=== PATIENT | female | born 1960 | race Caucasian/White ===

== ENCOUNTER 2017-07-06 10:49 | Emergency (ER) | payer BC ==
[2017-07-06 10:57] VITALS: TEMP 98.1
[2017-07-06] MEDS ORDERED: SODIUM CHLORIDE 0.9% 1,000 ML IV STA (11:32)
[2017-07-06] MEDS ORDERED: hydrALAZINE HCL 20 MG/ML 1 ML VIAL IVP STA (11:32)
[2017-07-06] MEDS ORDERED: ONDANSETRON 4 MG/2 ML VIAL IVP STA (11:32)
[2017-07-06] MEDS ORDERED: LORazepam 2 MG/ML INJ IV STA (11:32)
--- NOTE | 2017-07-06 12:18 | ED ---
General Adult HPI - General Chief complaint: Recheck/Abnormal Lab/Rx Stated complaint: Anxiety Time Seen by Provider: 07/06/17 10:51 Source: patient, EMS, RN notes reviewed, old records reviewed Mode of arrival: EMS Limitations: no limitations - History of Present Illness Initial comments: This is a 52-year-old female to the ER for evaluation regarding a few different complaints including chest pain and anxiety abdominal pain. Patient also complains of nausea without vomiting. Increased anxiety and stress. Patient has multiple history of surgery including abdominal surgery. Patient was recently diagnosed with elevated blood pressure although is not certain blood pressure medications. Patient called EMS today secondary to nausea and some abdominal discomfort which led her to have anxiety regarding was causing her pain. Patient very anxious upon arrival to ER. No fevers or travel history or sick contacts. - Related Data Home Medications Medication Instructions Recorded Confirmed Lansoprazole [Prevacid] 30 mg PO BID 07/24/16 07/06/17 ALPRAZolam [Xanax] 0.25 mg PO BID PRN 07/06/17 07/06/17 amLODIPine [Norvasc] 5 mg PO DAILY 07/06/17 07/06/17 Allergies Allergy/AdvReac Type Severity Reaction Status Date / Time amoxicillin Allergy Unknown Verified 07/06/17 11:06 aspirin Allergy Unknown Verified 07/06/17 11:06 Iodine and Iodide Containing Allergy Unknown Verified 07/06/17 11:06 Produc latex Allergy Unknown Verified 07/06/17 11:06 Penicillins Allergy Unknown Verified 07/06/17 11:06 prednisone Allergy Unknown Verified 07/06/17 11:06 strawberry Allergy Unknown Verified 07/06/17 11:06 Beta-Blockers AdvReac CHEST Verified 07/06/17 11:06 (Beta-Adrenergic Bloc PRESSURE lisinopril AdvReac DIZZINESS Verified 07/06/17 11:06 omeprazole [From Prilosec] AdvReac Itching Verified 07/06/17 11:06 Review of Systems ROS Statement: Those systems with pertinent positive or pertinent negative responses have been documented in the HPI. ROS Other: All systems not noted in ROS Statement are negative. Past Medical History Past Medical History: GERD/Reflux, Hypertension History of Any Multi-Drug Resistant Organisms: None Reported Past Surgical History: Cholecystectomy, Tubal Ligation Past Psychological History: Anxiety Smoking Status: Former smoker Past Alcohol Use History: None Reported Past Drug Use History: None Reported General Exam Limitations: no limitations General appearance: alert, in no apparent distress, anxious Head exam: Present: atraumatic, normocephalic, normal inspection Eye exam: Present: normal appearance, PERRL, EOMI. Absent: scleral icterus, conjunctival injection, periorbital swelling ENT exam: Present: normal exam, mucous membranes moist Neck exam: Present: normal inspection. Absent: tenderness, meningismus, lymphadenopathy Respiratory exam: Present: normal lung sounds bilaterally. Absent: respiratory distress, wheezes, rales, rhonchi, stridor Cardiovascular Exam: Present: regular rate, normal rhythm, normal heart sounds. Absent: systolic murmur, diastolic murmur, rubs, gallop, clicks GI/Abdominal exam: Present: soft, normal bowel sounds. Absent: distended, tenderness, guarding, rebound, rigid Extremities exam: Present: normal inspection, full ROM, normal capillary refill. Absent: tenderness, pedal edema, joint swelling, calf tenderness Back exam: Present: normal inspection Neurological exam: Present: alert, oriented X3, CN II-XII intact Psychiatric exam: Present: normal affect, normal mood Skin exam: Present: warm, dry, intact, normal color. Absent: rash Course Vital Signs 07/06/17 07/06/17 07/06/17 10:51 12:05 12:45 Temperature 98.1 F Pulse Rate 93 96 114 H Respiratory 18 18 16 Rate Blood Pressure 207/115 187/106 174/93 O2 Sat by Pulse 98 97 99 Oximetry - Reevaluation(s) Reevaluation #1: 07/06/17 13:08 Patient's blood pressure and symptoms are much improved at this time, patient is encouraged to take blood pressure medication as prescribed Medical Decision Making - Medical Decision Making 57 female ER for evaluation slowdown discomfort with nausea. No active vomiting no chest pain. Patient did have initially elevated blood pressure, that is now improved. Patient's laboratory is otherwise normal and patient can be discharged home - Lab Data Result diagrams: 07/06/17 11:52 07/06/17 11:52 Lab Results 07/06/17 07/06/17 07/06/17 Range/Units 11:52 11:52 11:52 WBC 9.0 (3.8-10.6) k/uL RBC 5.95 H (3.80-5.40) m/uL Hgb 16.8 H (11.4-16.0) gm/dL Hct 51.1 H (34.0-46.0) % MCV 85.8 (80.0-100.0) fL MCH 28.2 (25.0-35.0) pg MCHC 32.9 (31.0-37.0) g/dL RDW 12.9 (11.5-15.5) % Plt Count 305 (150-450) k/uL Neutrophils % 72 % Lymphocytes % 18 % Monocytes % 6 % Eosinophils % 2 % Basophils % 1 % Neutrophils # 6.5 (1.3-7.7) k/uL Lymphocytes # 1.6 (1.0-4.8) k/uL Monocytes # 0.5 (0-1.0) k/uL Eosinophils # 0.2 (0-0.7) k/uL Basophils # 0.1 (0-0.2) k/uL Sodium 143 (137-145) mmol/L Potassium 4.7 (3.5-5.1) mmol/L Chloride 107 (98-107) mmol/L Carbon Dioxide 22 (22-30) mmol/L Anion Gap 14 mmol/L BUN 11 (7-17) mg/dL Creatinine 0.72 (0.52-1.04) mg/dL Est GFR (MDRD) Af Amer >60 (>60 ml/min/1.73 sqM) Est GFR (MDRD) Non-Af >60 (>60 ml/min/1.73 sqM) Glucose 103 H (74-99) mg/dL Calcium 10.3 H (8.4-10.2) mg/dL Phosphorus 2.8 (2.5-4.5) mg/dL Magnesium 2.0 (1.6-2.3) mg/dL Total Bilirubin 0.5 (0.2-1.3) mg/dL AST 43 H (14-36) U/L ALT 75 H (9-52) U/L Alkaline Phosphatase 97 (38-126) U/L Total Creatine Kinase 43 (30-135) U/L CK-MB (CK-2) 0.3 (0.0-2.4) ng/mL CK-MB (CK-2) Rel Index 0.7 Troponin I <0.012 (0.000-0.034) ng/mL Total Protein 8.4 H (6.3-8.2) g/dL Albumin 4.9 (3.5-5.0) g/dL Lipase 88 (23-300) U/L Disposition Clinical Impression: Anxiety, Hypertension Disposition: HOME SELF-CARE Condition: Good Instructions: Hypertension (ED) Referrals: Lon Alexandra MD [Primary Care Provider] - 1-2 days
[2017-07-06 12:24] LABS: Basophils # (A) 0.1 k/uL (0-0.2); Basophils % (A) 1 %; CH 28.5; CHCM 33.3; Eosinophils # (A) 0.2 k/uL (0-0.7); Eosinophils % (A) 2 %; HCT 51.1 % (34.0-46.0); HDW 2.39; HGB 16.8 gm/dL (11.4-16.0); Luc % (Auto) 1; Lymphocytes # (A) 1.6 k/uL (1.0-4.8); Lymphocytes % (A) 18 %; MCH 28.2 pg (25.0-35.0); MCHC 32.9 g/dL (31.0-37.0); MCV 85.8 fL (80.0-100.0); Mean Platelet Volume 8.6; Monocytes # (A) 0.5 k/uL (0-1.0); Monocytes % (A) 6 %; Neutrophils # (A) 6.5 k/uL (1.3-7.7); Neutrophils % (A) 72 %; RBC 5.95 m/uL (3.80-5.40); RDW 12.9 % (11.5-15.5); WBC (Perox) 8.11
[2017-07-06 12:28] LABS: ALT 75 U/L (9-52); AST 43 U/L (14-36); Alkaline Phosphatase 97 U/L (38-126); Anion Gap 14 mmol/L; Blood Urea Nitrogen 11 mg/dL (7-17); Calcium 10.3 mg/dL (8.4-10.2); Carbon Dioxide 22 mmol/L (22-30); Chloride 107 mmol/L (98-107); Glucose 103 mg/dL (74-99); Non-African American GFR(MDRD) >60 (>60 ml/min/1.73 sqM); Phosphorus 2.8 mg/dL (2.5-4.5); Potassium 4.7 mmol/L (3.5-5.1); Sodium 143 mmol/L (137-145); Total Bilirubin 0.5 mg/dL (0.2-1.3); Total Protein 8.4 g/dL (6.3-8.2)
[2017-07-06 12:34] LABS: Creatine Kinase 43 U/L (30-135)
[2017-07-06 12:47] LABS: Creatine Kinase MB 0.3 ng/mL (0.0-2.4); Troponin I <0.012 ng/mL (0.000-0.034)
[2017-07-06 13:42] VITALS: BP 160/99; PULSE 110; RESP 18
== END 2017-07-06 13:43 | disposition home or self-care (01) ==
LOC: EC 10:49
DX: I10 Essential (primary) hypertension (principal); F41.9 Anxiety disorder, unspecified; R07.9 Chest pain, unspecified; Z87.891 Personal history of nicotine dependence; Z79.899 Other long term (current) drug therapy; Z88.0 Allergy status to penicillin; Z88.6 Allergy status to analgesic agent; Z88.8 Allergy status to other drugs, medicaments and biological substances; Z91.018 Allergy to other foods; Z91.040 Latex allergy status; Z91.041 Radiographic dye allergy status; Z90.49 Acquired absence of other specified parts of digestive tract
CPT/HCPCS: 99284; 96374; 96375 ×2; 96361; 36415; 93005; 80053; 82550; 82553; 83690; 83735; 84100; 84484; 85025; J2060; J0360; J2405

== ENCOUNTER 2017-08-12 14:03 | Emergency (ER) | payer BC ==
[2017-08-12] MEDS ORDERED: SODIUM CHLORIDE 0.9% 500 ML IV STA (15:12)
[2017-08-12] MEDS ORDERED: ONDANSETRON 4 MG/2 ML VIAL IVP STA (15:12)
[2017-08-12] MEDS ORDERED: FAMOTIDINE 20 MG/2 ML VIAL IV STA (15:13)
[2017-08-12] MEDS ORDERED: DICYCLOMINE 20 MG TAB PO STA (15:13)
--- NOTE | 2017-08-12 15:38 | ED ---
Abdominal Pain HPI - General Chief Complaint: Abdominal Pain Stated Complaint: ABDOMINAL PAIN AND VOMITING X 6 WEEKS Time Seen by Provider: 08/12/17 15:06 Source: patient, RN notes reviewed Mode of arrival: wheelchair Limitations: no limitations - History of Present Illness Initial Comments: This a 57-year-old female presents emergency Department chief complaint of abdominal pain times. Patient states she's been having worsening abdominal pain. Patient states she's been seen here and at [facility] for this. She' s also seen her primary care physician. Patient states she is scheduled see a GI physician in August. Patient states that she does have some loose stools but normally has constipation as she's been diagnosed with IBS or constipation. She states when she was here she was told Anxiety. Patient denies any dysuria , hematuria, vomiting. Patient does admit to some nausea does take Prevacid for acid reflux. There is family history of gastritis and gastric ulcers no history of IBS or IBD. Patient denies having history of having EGD or colonoscopy. Patient denies chest pain, shortness of breath. - Related Data Home Medications Medication Instructions Recorded Confirmed Lansoprazole [Prevacid] 30 mg PO DAILY 07/24/16 08/12/17 ALPRAZolam [Xanax] 0.25 mg PO BID PRN 07/06/17 08/12/17 Mylanta 30 ml PO DAILY PRN 08/12/17 08/12/17 Ranitidine HCl [Zantac] 150 mg PO DAILY PRN 08/12/17 08/12/17 Previous Rx's Medication Instructions Recorded Dicyclomine [Bentyl] 20 mg PO TID #30 tablet 08/12/17 Allergies Allergy/AdvReac Type Severity Reaction Status Date / Time amoxicillin Allergy Unknown Verified 08/12/17 15:00 aspirin Allergy Unknown Verified 08/12/17 15:00 Iodine and Iodide Containing Allergy Unknown Verified 08/12/17 15:00 Produc latex Allergy Unknown Verified 08/12/17 15:00 Penicillins Allergy Unknown Verified 08/12/17 15:00 prednisone Allergy Unknown Verified 08/12/17 15:00 strawberry Allergy Unknown Verified 08/12/17 15:00 amlodipine [From Norvasc] AdvReac CAUSED Verified 08/12/17 15:00 BLOOD PRESSURE TO GO UP Beta-Blockers AdvReac CHEST Verified 08/12/17 15:00 (Beta-Adrenergic Bloc PRESSURE lisinopril AdvReac DIZZINESS Verified 08/12/17 15:00 omeprazole [From Prilosec] AdvReac Itching Verified 08/12/17 15:00 Review of Systems ROS Statement: Those systems with pertinent positive or pertinent negative responses have been documented in the HPI. ROS Other: All systems not noted in ROS Statement are negative. Past Medical History Past Medical History: GERD/Reflux, Hypertension History of Any Multi-Drug Resistant Organisms: None Reported Past Surgical History: Cholecystectomy, Tubal Ligation Past Psychological History: Anxiety Smoking Status: Former smoker Past Alcohol Use History: None Reported Past Drug Use History: None Reported General Exam Limitations: no limitations General appearance: alert, in no apparent distress Head exam: Present: atraumatic, normocephalic, normal inspection Neck exam: Present: normal inspection, full ROM. Absent: tenderness, meningismus, lymphadenopathy Respiratory exam: Present: normal lung sounds bilaterally. Absent: respiratory distress, wheezes, rales, rhonchi, stridor Cardiovascular Exam: Present: regular rate, normal rhythm, normal heart sounds. Absent: systolic murmur, diastolic murmur, rubs, gallop, clicks GI/Abdominal exam: Present: soft, tenderness (Mild diffuse no localized tenderness), normal bowel sounds. Absent: distended, guarding, rebound, rigid Back exam: Absent: CVA tenderness (R), CVA tenderness (L) Neurological exam: Present: alert, oriented X3, CN II-XII intact Skin exam: Present: warm, dry, intact, normal color. Absent: rash Course Vital Signs 08/12/17 08/12/17 14:25 16:20 Temperature 98.4 F Pulse Rate 107 H 92 Respiratory 18 20 Rate Blood Pressure 174/107 197/111 O2 Sat by Pulse 99 98 Oximetry Medical Decision Making - Medical Decision Making 57-year-old female presented for chronic abdominal issues. Patient had decreased appetite, some acid reflux type symptoms. Patient states CT does show sliding hiatal hernia. Patient does have follow-up appointment in 1 week with GI. Patient be discharged with Bentyl and gastric ulcer dietary changes. - Lab Data Result diagrams: 08/12/17 15:33 08/12/17 15:33 Lab Results 08/12/17 08/12/17 08/12/17 Range/Units 15:33 15:33 15:33 WBC 7.8 (3.8-10.6) k/uL RBC 5.93 H (3.80-5.40) m/uL Hgb 16.6 H (11.4-16.0) gm/dL Hct 51.1 H (34.0-46.0) % MCV 86.3 (80.0-100.0) fL MCH 28.1 (25.0-35.0) pg MCHC 32.5 (31.0-37.0) g/dL RDW 15.3 (11.5-15.5) % Plt Count 259 (150-450) k/uL Neutrophils % 66 % Lymphocytes % 21 % Monocytes % 7 % Eosinophils % 3 % Basophils % 1 % Neutrophils # 5.2 (1.3-7.7) k/uL Lymphocytes # 1.6 (1.0-4.8) k/uL Monocytes # 0.5 (0-1.0) k/uL Eosinophils # 0.3 (0-0.7) k/uL Basophils # 0.1 (0-0.2) k/uL PT 11.9 (9.0-12.0) sec INR 1.2 H (<1.2) APTT 26.0 (22.0-30.0) sec Sodium 141 (137-145) mmol/L Potassium 4.0 (3.5-5.1) mmol/L Chloride 106 (98-107) mmol/L Carbon Dioxide 22 (22-30) mmol/L Anion Gap 13 mmol/L BUN 7 (7-17) mg/dL Creatinine 0.77 (0.52-1.04) mg/dL Est GFR (MDRD) Af Amer >60 (>60 ml/min/1.73 sqM) Est GFR (MDRD) Non-Af >60 (>60 ml/min/1.73 sqM) Glucose 95 (74-99) mg/dL Calcium 10.3 H (8.4-10.2) mg/dL Total Bilirubin 0.7 (0.2-1.3) mg/dL AST 55 H (14-36) U/L ALT 93 H (9-52) U/L Alkaline Phosphatase 101 (38-126) U/L Total Protein 8.0 (6.3-8.2) g/dL Albumin 4.6 (3.5-5.0) g/dL Amylase 56 (30-110) U/L Lipase 75 (23-300) U/L Disposition Clinical Impression: Abdominal pain, Hiatal hernia Disposition: HOME SELF-CARE Condition: Stable Instructions: Hiatal Hernia (ED), Diet for Stomach Ulcers and Gastritis (ED) Additional Instructions: Please return to the Emergency Department if symptoms worsen or any other concerns. Prescriptions: Dicyclomine [Bentyl] 20 mg PO TID #30 tablet Referrals: Lon Alexandra MD [Primary Care Provider] - 1-2 days Juana Bazzi MD [STAFF PHYSICIAN] - 1-2 days Time of Disposition: 16:43
[2017-08-12 15:45] LABS: Basophils # (A) 0.1 k/uL (0-0.2); Basophils % (A) 1 %; CH 28.8; CHCM 33.5; Eosinophils # (A) 0.3 k/uL (0-0.7); Eosinophils % (A) 3 %; HCT 51.1 % (34.0-46.0); HDW 2.35; HGB 16.6 gm/dL (11.4-16.0); Luc # (Auto) 0.14; Luc % (Auto) 2; Lymphocytes # (A) 1.6 k/uL (1.0-4.8); Lymphocytes % (A) 21 %; MCH 28.1 pg (25.0-35.0); MCHC 32.5 g/dL (31.0-37.0); MCV 86.3 fL (80.0-100.0); Mean Platelet Volume 9.6; Monocytes # (A) 0.5 k/uL (0-1.0); Monocytes % (A) 7 %; Neutrophils # (A) 5.2 k/uL (1.3-7.7); Neutrophils % (A) 66 %; RBC 5.93 m/uL (3.80-5.40); RDW 15.3 % (11.5-15.5); WBC 7.8 k/uL (3.8-10.6); WBC (Perox) 8.13
[2017-08-12 15:56] LABS: ALT 93 U/L (9-52); AST 55 U/L (14-36); Alkaline Phosphatase 101 U/L (38-126); Amylase 56 U/L (30-110); Anion Gap 13 mmol/L; Blood Urea Nitrogen 7 mg/dL (7-17); Calcium 10.3 mg/dL (8.4-10.2); Carbon Dioxide 22 mmol/L (22-30); Chloride 106 mmol/L (98-107); Glucose 95 mg/dL (74-99); Non-African American GFR(MDRD) >60 (>60 ml/min/1.73 sqM); Sodium 141 mmol/L (137-145); Total Bilirubin 0.7 mg/dL (0.2-1.3)
--- NOTE | 2017-08-12 16:13 | CT ---
EXAMINATION TYPE: CT abdomen pelvis wo con DATE OF EXAM: 08/12/2017 COMPARISON: NONE HISTORY: Pain Examination of the solid and hollow viscera is limited given the lack of contrast. FINDINGS: LUNG BASES: No evidence for nodule. No evidence for infiltrate. Small sliding-type hiatal hernia. LIVER/GB: Diffuse hepatic steatosis. Cholecystectomy clips noted. No space-occupying hepatic lesion. PANCREAS: No pancreatic mass identified. No inflammatory process seen. SPLEEN: No evidence for splenomegaly. No intrasplenic lesions seen. ADRENALS: No adrenal nodules identified. No evidence for thickening. KIDNEYS: No evidence for renal mass. 6 mm calculus nonobstructing midpole right kidney. No hydronephr osis. BOWEL: Appendix has a normal appearance. No evidence of bowel obstruction. No inflammatory process. Lymph nodes: No evidence for adenopathy greater than 1 cm. Abdominal aorta: Atheromatous changes seen. No evidence for aneurysm. Genital organs: 3.3 cm leiomyoma the uterus. No ovarian masses identified. Focal myometrial calcifica tions. Other: No significant abnormality. IMPRESSION: 1. NONOBSTRUCTING RIGHT-SIDED NEPHROLITHIASIS. 2. HEPATIC STEATOSIS. 3. SMALL SLIDING-TYPE HIATAL HERNIA.
[2017-08-12] MEDS ORDERED: ALPRAZolam 0.5 MG TAB PO STA (16:19)
[2017-08-12 16:36] LABS: INR 1.2 (<1.2); Prothrombin Time 11.9 sec (9.0-12.0)
[2017-08-12 16:42] LABS: Appearance,Urine Clear (Clear); Bilirubin,Urine Negative (Negative); Glucose,Urine (UA) Negative (Negative); Ketones,Urine 1+ (Negative); Leukocyte Esterase,Urine Negative (Negative); Nitrite,Urine Negative (Negative); Protein,Urine Negative (Negative); Specific Gravity,Urine 1.004 (1.001-1.035); UA Billing (MACRO vs. MICRO) CHEM; Urobilinogen,Urine <2.0 mg/dL (<2.0)
[2017-08-12 16:53] VITALS: BP 199/122; PULSE 96; RESP 16; TEMP 97
== END 2017-08-12 17:03 | disposition home or self-care (01) ==
LOC: EC 14:03
DX: K44.9 Diaphragmatic hernia without obstruction or gangrene (principal); K21.9 Gastro-esophageal reflux disease without esophagitis; Z87.891 Personal history of nicotine dependence; Z79.899 Other long term (current) drug therapy; Z88.0 Allergy status to penicillin; Z88.6 Allergy status to analgesic agent; Z91.041 Radiographic dye allergy status; Z91.040 Latex allergy status; Z91.018 Allergy to other foods; Z88.8 Allergy status to other drugs, medicaments and biological substances; Z90.49 Acquired absence of other specified parts of digestive tract; Z98.51 Tubal ligation status
CPT/HCPCS: 36415; 74176; 80053; 81003; 82150; 83690; 85025; 85610; 85730; 96361; 96374; 96375; 99284

== ENCOUNTER 2017-10-30 14:24 | Emergency (ER) | payer BC ==
[2017-10-30 14:29] VITALS: BP 201/111; RESP 18; TEMP 98.2
--- NOTE | 2017-10-30 15:54 | ED ---
Chest Pain HPI - General Chief Complaint: Chest Pain Stated Complaint: Chest pain Time Seen by Provider: 10/30/17 15:40 Source: patient, RN notes reviewed Mode of arrival: wheelchair Limitations: no limitations - History of Present Illness Initial Comments: This is a 57-year-old female with no personal history of heart disease but a strong family history her dad in his mid 30s heart disease who states she had the onset of pain between her shoulder blades especially on the left going into her neck. She's had pain there for 2 weeks seems to get worse when she is at work sitting in a certain chair. She states is dull yesterday was fairly severe at 8/10 today. 2-11/21. He's had no fevers chills nausea vomiting sweats she does however state that she had flu symptoms about a week ago and it had to stay home from work because of it. This seems to be improving. She has a other symptoms to report at this time. MD Complaint: chest pain - Related Data Home Medications Medication Instructions Recorded Confirmed Lansoprazole [Prevacid] 30 mg PO DAILY 07/24/16 10/30/17 ALPRAZolam [Xanax] 0.25 mg PO BID PRN 07/06/17 10/30/17 Ranitidine HCl [Zantac] 150 mg PO DAILY PRN 08/12/17 10/30/17 Cholecalciferol [Vitamin D3] 1,000 unit PO DAILY 10/30/17 10/30/17 Multivitamins, Thera [Multivitamin 1 tab PO DAILY 10/30/17 10/30/17 (formulary)] Simethicone [Gas-X] 125 mg PO DAILY PRN 10/30/17 10/30/17 Vitamin B Complex 1 cap PO DAILY 10/30/17 10/30/17 Allergies Allergy/AdvReac Type Severity Reaction Status Date / Time amoxicillin Allergy Unknown Verified 10/30/17 15:54 aspirin Allergy Unknown Verified 10/30/17 15:54 Iodine and Iodide Containing Allergy Unknown Verified 10/30/17 15:54 Produc latex Allergy Unknown Verified 10/30/17 15:54 Penicillins Allergy Unknown Verified 10/30/17 15:54 prednisone Allergy Unknown Verified 10/30/17 15:54 strawberry Allergy Unknown Verified 10/30/17 15:54 amlodipine [From [facility]] AdvReac CAUSED Verified 10/30/17 15:54 BLOOD PRESSURE TO GO UP Beta-Blockers AdvReac CHEST Verified 10/30/17 15:54 (Beta-Adrenergic Bloc PRESSURE lisinopril AdvReac DIZZINESS Verified 10/30/17 15:54 omeprazole [From Prilosec] AdvReac Itching Verified 10/30/17 15:54 Review of Systems ROS Statement: Those systems with pertinent positive or pertinent negative responses have been documented in the HPI. ROS Other: All systems not noted in ROS Statement are negative. EKG Findings - EKG Results: EKG: interpreted by JAIRON, sinus rhythm (Sinus rhythm rate 92. Interval 124 QRS duration 70 QT since QTC of 380/469 this is a low-voltage QRS otherwise unremarkable) Past Medical History Past Medical History: GERD/Reflux, Hypertension History of Any Multi-Drug Resistant Organisms: None Reported Past Surgical History: Cholecystectomy, Tubal Ligation Past Psychological History: Anxiety Smoking Status: Former smoker Past Alcohol Use History: None Reported Past Drug Use History: None Reported General Exam - General Exam Comments Initial Comments: This is a well-developed well-nourished awake alert oriented 3 female Limitations: no limitations General appearance: alert, in no apparent distress Head exam: Present: atraumatic, normocephalic, normal inspection Eye exam: Present: normal appearance, PERRL, EOMI. Absent: scleral icterus, conjunctival injection, periorbital swelling ENT exam: Present: normal exam, mucous membranes moist Neck exam: Present: normal inspection. Absent: tenderness, meningismus, lymphadenopathy Respiratory exam: Present: normal lung sounds bilaterally. Absent: respiratory distress, wheezes, rales, rhonchi, stridor Cardiovascular Exam: Present: regular rate, normal rhythm, normal heart sounds. Absent: systolic murmur, diastolic murmur, rubs, gallop, clicks GI/Abdominal exam: Present: soft, normal bowel sounds. Absent: distended, tenderness, guarding, rebound, rigid Extremities exam: Present: normal inspection, full ROM, normal capillary refill. Absent: tenderness, pedal edema, joint swelling, calf tenderness Back exam: Present: normal inspection, tenderness (Tenderness palpation over the left paraspinous muscles and rhomboid muscles this does reproduce the pain when I palpate. No spinous process tenderness no tenderness anywhere else.). Absent: CVA tenderness (R), CVA tenderness (L), rash noted Neurological exam: Present: alert, oriented X3, CN II-XII intact Psychiatric exam: Present: normal affect, normal mood Skin exam: Present: warm, dry, intact, normal color. Absent: rash Course Vital Signs 10/30/17 14:26 Temperature 98.2 F Pulse Rate 90 Respiratory 18 Rate Blood Pressure 201/111 O2 Sat by Pulse 98 Oximetry Chest Pain MDM - MDM I did review the imaging and reports no acute findings. The patient's workup is thus far negative for acute findings the presentation is consistent with musculoskeletal chest pain. Light of her family history however I did recommend she follow-up with her doctor for outpatient stress test. She cannot take anti-inflammatories she will continue with Tylenol for pain and warm compresses I did recommend massage also. Disposition Clinical Impression: Chest wall syndrome, Myofascial pain Disposition: HOME SELF-CARE Condition: Good Instructions: Chest Wall Pain (ED), Musculoskeletal Pain (ED) Referrals: Lon Alexandra MD [Primary Care Provider] - 1-2 days
[2017-10-30 16:27] LABS: Basophils # (A) 0.1 k/uL (0-0.2); Basophils % (A) 1 %; Eosinophils # (A) 0.1 k/uL (0-0.7); Eosinophils % (A) 1 %; HCT 48.1 % (34.0-46.0); Lymphocytes % (A) 28 %; MCH 28.3 pg (25.0-35.0); MCHC 33.3 g/dL (31.0-37.0); Mean Platelet Volume 8.5; Monocytes # (A) 0.3 k/uL (0-1.0); Monocytes % (A) 5 %; Neutrophils # (A) 4.6 k/uL (1.3-7.7); Neutrophils % (A) 64 %; Platelet Count 270 k/uL (150-450); RBC 5.66 m/uL (3.80-5.40); RDW 12.7 % (11.5-15.5); WBC 7.3 k/uL (3.8-10.6)
[2017-10-30 16:38] LABS: ALT 109 U/L (9-52); AST 75 U/L (14-36); Albumin 4.4 g/dL (3.5-5.0); Alkaline Phosphatase 103 U/L (38-126); Amylase 48 U/L (30-110); Anion Gap 16 mmol/L; Blood Urea Nitrogen 13 mg/dL (7-17); Calcium 10.2 mg/dL (8.4-10.2); Carbon Dioxide 20 mmol/L (22-30); Chloride 106 mmol/L (98-107); Glucose 91 mg/dL (74-99); Lipase 101 U/L (23-300); Magnesium 1.9 mg/dL (1.6-2.3); Sodium 142 mmol/L (137-145); Total Bilirubin 0.8 mg/dL (0.2-1.3); Total Protein 7.6 g/dL (6.3-8.2)
--- NOTE | 2017-10-30 16:39 | XR ---
EXAMINATION TYPE: XR chest 2V DATE OF EXAM: 10/30/2017 COMPARISON: 10/20/2011 HISTORY: Chest pain TECHNIQUE: Frontal and lateral views of the chest are obtained. FINDINGS: Heart and mediastinum are normal. Lungs are clear. Diaphragm is normal. Bony thorax is int act. IMPRESSION: Normal chest. No change.
[2017-10-30 16:46] LABS: Creatine Kinase 44 U/L (30-135)
[2017-10-30 16:48] LABS: D-Dimer 0.35 mg/L FEU (<0.60); INR 1.1 (<1.2); Partial Thromboplastin Time 24.3 sec (22.0-30.0); Prothrombin Time 10.5 sec (9.0-12.0)
[2017-10-30 16:59] LABS: Creatine Kinase MB <0.2 ng/mL (0.0-2.4); Troponin I <0.012 ng/mL (0.000-0.034)
[2017-10-30 17:17] VITALS: PULSE 80
== END 2017-10-30 17:22 | disposition home or self-care (01) ==
LOC: EC 14:24
DX: R07.1 Chest pain on breathing (principal); M79.1 Myalgia; K21.9 Gastro-esophageal reflux disease without esophagitis; Z87.891 Personal history of nicotine dependence; Z79.899 Other long term (current) drug therapy; Z88.0 Allergy status to penicillin; Z91.040 Latex allergy status; Z88.8 Allergy status to other drugs, medicaments and biological substances; Z88.6 Allergy status to analgesic agent; Z91.018 Allergy to other foods
CPT/HCPCS: 36415; 71046; 80053; 82150; 82550; 82553; 83690; 83735; 83880; 84484; 85025; 85379; 85610; 85730; 93005; 99285

== ENCOUNTER → 2017-11-02 | Outpatient (CLI) | payer BC ==
--- NOTE | 2017-11-03 07:46 | MM ---
Reason for exam: additional evaluation requested from prior study. Last mammogram was performed 1 year and 3 months ago. History: Patient is postmenopausal. Benign US biopsy breast VAD LT of the left breast, July 24, 2016. Physical Findings: Nurse did not find any significant physical abnormalities on exam. MG 3D Diag Mammo W/Cad ANNITA Bilateral CC and MLO view(s) were taken. LM, spot compression MLO, and spot compression CC view(s) were taken of the right breast. Prior study comparison: July 24, 2016, left breast MG diagnostic mammo LT wo CAD. July 04, 2016, left breast MG work up mamm w CAD LT. There are scattered fibroglandular densities. Previous mammotome biopsy in the left breast. Focal asymmetry right upper outer quadrant disperses on spot 3D CC and spot 3D MLO views. Asymmetric density 12 o'clock subareolar left breast is stable from 2016. These results were verbally communicated with the patient and result sheet given to the patient on 11/02/17. ASSESSMENT: Negative, BI-RAD 1 RECOMMENDATION: Routine screening mammogram of both breasts in 1 year.
== END | disposition home or self-care (01) ==
LOC: RADMAMWWP 14:43
PROVIDERS: ATTEND Obstetrics & Gynecology
DX: R92.8 Other abnormal and inconclusive findings on diagnostic imaging of breast (principal)
CPT/HCPCS: 77066; G0279

== ENCOUNTER → 2018-10-27 | Outpatient (CLI) | payer BC ==
--- NOTE | 2018-10-27 10:13 | FL ---
ESOPHOGRAM. HISTORY: Dysphagia Esophagram was performed per the air contrast technique. The patient swallowed barium and effervesce nt crystals without difficulty or delay. Esophageal peristalsis and motility appear to be within normal limits. There is no evidence for filling defect, mass or diverticulum. No hiatal hernia seen. Subsequently single contrast cervical esophagram was performed which fails demonstrate evidence for a spiration penetration or mass. IMPRESSION: Unremarkable study.
== END | disposition home or self-care (01) ==
LOC: RADFLWHC 09:19
PROVIDERS: ATTEND Family Medicine
DX: R13.10 Dysphagia, unspecified (principal)
CPT/HCPCS: 74220

== ENCOUNTER → 2019-05-02 | Outpatient (CLI) | payer BC ==
--- NOTE | 2019-05-03 13:31 | MM ---
Reason for exam: screening (asymptomatic). Last mammogram was performed 1 year and 6 months ago. History: Patient is postmenopausal. Benign US biopsy breast VAD LT of the left breast, July 24, 2016. Physical Findings: A clinical breast exam by your physician is recommended on an annual basis and results should be correlated with mammographic findings. MG Screening Mammo w CAD Bilateral CC and MLO view(s) were taken. Prior study comparison: November 02, 2017, bilateral MG 3d diag mammo w/cad ANNITA. July 24, 2016, left breast MG diagnostic mammo LT wo CAD. June 26, 2016, bilateral MG screening mammo w CAD. December 22, 2014, bilateral MG screening mammo w CAD. There are scattered fibroglandular densities. Previous mammotome biopsy in the left breast. Stable benign round calcifications bilaterally. No significant changes when compared with prior studies. ASSESSMENT: Benign, BI-RAD 2 RECOMMENDATION: Routine screening mammogram of both breasts in 1 year.
== END | disposition home or self-care (01) ==
LOC: RADMAMWWP 10:49
PROVIDERS: ATTEND Obstetrics & Gynecology
DX: Z12.31 Encounter for screening mammogram for malignant neoplasm of breast (principal)
CPT/HCPCS: 77067

== ENCOUNTER → 2020-03-27 | Outpatient (CLI) | payer BC | END | disposition home or self-care (01) | LOC: LABWHC1 10:06 | PROVIDERS: ATTEND Family Medicine | DX: Z20.828 Contact with and (suspected) exposure to other viral communicable diseases (principal) | CPT/HCPCS: 36415; 86769 ==

== ENCOUNTER 2020-10-09 16:18 | Observation (INO) | payer BC ==
[2020-10-09] MEDS ORDERED: LORazepam 2 MG/ML INJ IV STA (16:46)
--- NOTE | 2020-10-09 16:49 | ED ---
General Adult HPI - General Chief complaint: Arrhythmia/Palpitations Stated complaint: Heart Palpatations Time Seen by Provider: 10/09/20 16:27 Source: patient Mode of arrival: ambulatory Limitations: no limitations - History of Present Illness Initial comments: Dictation was produced using [employer] dictation software. please excuse any grammatical, word or spelling errors. This patient was cared for during a federal and state declared state of e mergency secondary to Covid 19 Chief Complaint: 60-year-old male past medical history of anxiety presents with palpitations. History of Present Illness: Patient is a 60-year-old female past medical history of anxiety hypertension and reflux. Patient states that over the last week or so she's been having episodes of palpitations. She couldn't have anywhere from 10-20 palpitations and a day that would last for seconds to minutes. She called the primary care physician who told her to come to the emergency department for medical evaluation. Patient denies any palpitations currently. She feels anxious right now after being told by her PCP to come to the emergency room. Patient has any shortness of breath. No pain. Denies any history of blood clots. She states that her heart usually goes fast whenever she feels anxious. She currently does feel anxiety. The ROS documented in this emergency department record has been reviewed and confirmed by me. Those systems with pertinent positive or negative responses have been documented in the HPI. All other systems are other negative and/or noncontributory. PHYSICAL EXAM: General Impression: Alert and oriented x3, not in acute distress HEENT: Normocephalic atraumatic, extra-ocular movements intact, pupils equal and reactive to light bilaterally, mucous membranes moist. Cardiovascular: Tachycardic, regular Chest: Able to complete full sentences, no retractions, no tachypnea Abdomen: abdomen soft, non-tender, non-distended, no organomegaly Musculoskeletal: Pulses present and equal in all extremities, no peripheral e vel Motor: no focal deficits noted Neurological: CN II-XII grossly intact, no focal motor or sensory deficits noted Skin: Intact with no visualized rashes Psych: Normal affect and mood ED course: 60-year-old male presents with chief complaint of palpitations. As upon arrival shows heart rate of 131, blood pressure 208/133, rest of vital signs within acceptable limits. Laboratory evaluation obtained. Mild hemoconcentration with hemoglobin 16.3, coag panel unremarkable. Metabolic panel is negative. Troponins negative. TSH is normal. Chest x-ray is clear. Patient given anxiolytics with improvement of heart rate however it still tachycardic. Patient reevaluated at bedside cystoscopy complaint of palpitations. Consider patient has ongoing symptoms while patient in observation with consultation cardiology. Patient given a metoprolol. Patient be admitted to Dr. Veras. EKG interpretation: Ventricular rate 120, sinus tachycardia, DC interval 142, QRS 80, QTc 466. No DC prolongation, no QTC prolongation, no ST or T-wave changes noted. - Related Data Home Medications Medication Instructions Recorded Confirmed ALPRAZolam [Xanax] 0.0625 mg PO BID PRN 07/06/17 10/09/20 Simethicone [Gas-X] 250 mg PO TID PRN 10/30/17 10/09/20 Calcium Carbonate [Tums] 1,000 mg PO TID PRN 10/09/20 10/09/20 Famotidine [Pepcid] 20 mg PO ONCE 10/09/20 10/09/20 Mag/Aluminum/Sod Bicarb/Alginc 2 tab PO TID PRN 10/09/20 10/09/20 [Gaviscon 80-14.2 mg Tab Chew] Neo40 1 tab PO HS 10/09/20 10/09/20 Allergies Allergy/AdvReac Type Severity Reaction Status Date / Time amoxicillin Allergy Unknown Verified 10/09/20 16:57 aspirin Allergy Unknown Verified 10/09/20 16:57 Iodine and Iodide Containing Allergy Unknown Verified 10/09/20 16:57 Produc latex Allergy Unknown Verified 10/09/20 16:57 Penicillins Allergy Unknown Verified 10/09/20 16:57 prednisone Allergy Unknown Verified 10/09/20 16:57 strawberry Allergy Unknown Verified 10/09/20 16:57 amlodipine [From Norvasc] AdvReac CAUSED Verified 10/09/20 16:57 BLOOD PRESSURE TO GO UP Beta-Blockers AdvReac CHEST Verified 10/09/20 16:57 (Beta-Adrenergic Bloc PRESSURE lisinopril AdvReac DIZZINESS Verified 10/09/20 16:57 omeprazole [From Prilosec] AdvReac Itching Verified 10/09/20 16:57 Review of Systems ROS Statement: Those systems with pertinent positive or pertinent negative responses have been documented in the HPI. ROS Other: All systems not noted in ROS Statement are negative. Past Medical History Past Medical History: GERD/Reflux, Hypertension History of Any Multi-Drug Resistant Organisms: None Reported Past Surgical History: Cholecystectomy, Tubal Ligation Past Psychological History: Anxiety Smoking Status: Never smoker Past Alcohol Use History: None Reported Past Drug Use History: None Reported General Exam Limitations: no limitations Course Vital Signs 10/09/20 10/09/20 16:24 17:09 Temperature 99.1 F Pulse Rate 131 H 112 H Respiratory 20 18 Rate Blood Pressure 208/133 O2 Sat by Pulse 97 96 Oximetry Medical Decision Making - Lab Data Result diagrams: 10/09/20 16:46 10/09/20 16:46 Lab Results 10/09/20 10/09/20 10/09/20 Range/Units 16:46 16:46 16:46 WBC 9.7 (3.8-10.6) k/uL RBC 5.79 H (3.80-5.40) m/uL Hgb 16.3 H (11.4-16.0) gm/dL Hct 48.1 H (34.0-46.0) % MCV 83.0 (80.0-100.0) fL MCH 28.2 (25.0-35.0) pg MCHC 34.0 (31.0-37.0) g/dL RDW 13.4 (11.5-15.5) % Plt Count 292 (150-450) k/uL MPV 9.2 Neutrophils % 69 % Lymphocytes % 20 % Monocytes % 5 % Eosinophils % 2 % Basophils % 1 % Neutrophils # 6.7 (1.3-7.7) k/uL Lymphocytes # 2.0 (1.0-4.8) k/uL Monocytes # 0.5 (0-1.0) k/uL Eosinophils # 0.2 (0-0.7) k/uL Basophils # 0.1 (0-0.2) k/uL PT 10.4 (9.0-12.0) sec INR 1.0 (<1.2) APTT 24.1 (22.0-30.0) sec Sodium 141 (137-145) mmol/L Potassium 4.1 (3.5-5.1) mmol/L Chloride 104 (98-107) mmol/L Carbon Dioxide 23 (22-30) mmol/L Anion Gap 14 mmol/L BUN 14 (7-17) mg/dL Creatinine 0.58 (0.52-1.04) mg/dL Est GFR (CKD-EPI)AfAm >90 (>60 ml/min/1.73 sqM) Est GFR (CKD-EPI)NonAf >90 (>60 ml/min/1.73 sqM) Glucose 108 H (74-99) mg/dL Calcium 10.1 (8.4-10.2) mg/dL Magnesium 2.2 (1.6-2.3) mg/dL Total Bilirubin 0.5 (0.2-1.3) mg/dL AST 41 H (14-36) U/L ALT 52 H (4-34) U/L Alkaline Phosphatase 97 (38-126) U/L Troponin I (0.000-0.034) ng/mL Total Protein 8.5 H (6.3-8.2) g/dL Albumin 4.7 (3.5-5.0) g/dL TSH 2.560 (0.465-4.680) mIU/L 10/09/20 Range/Units 16:46 WBC (3.8-10.6) k/uL RBC (3.80-5.40) m/uL Hgb (11.4-16.0) gm/dL Hct (34.0-46.0) % MCV (80.0-100.0) fL MCH (25.0-35.0) pg MCHC (31.0-37.0) g/dL RDW (11.5-15.5) % Plt Count (150-450) k/uL MPV Neutrophils % % Lymphocytes % % Monocytes % % Eosinophils % % Basophils % % Neutrophils # (1.3-7.7) k/uL Lymphocytes # (1.0-4.8) k/uL Monocytes # (0-1.0) k/uL Eosinophils # (0-0.7) k/uL Basophils # (0-0.2) k/uL PT (9.0-12.0) sec INR (<1.2) APTT (22.0-30.0) sec Sodium (137-145) mmol/L Potassium (3.5-5.1) mmol/L Chloride (98-107) mmol/L Carbon Dioxide (22-30) mmol/L Anion Gap mmol/L BUN (7-17) mg/dL Creatinine (0.52-1.04) mg/dL Est GFR (CKD-EPI)AfAm (>60 ml/min/1.73 sqM) Est GFR (CKD-EPI)NonAf (>60 ml/min/1.73 sqM) Glucose (74-99) mg/dL Calcium (8.4-10.2) mg/dL Magnesium (1.6-2.3) mg/dL Total Bilirubin (0.2-1.3) mg/dL AST (14-36) U/L ALT (4-34) U/L Alkaline Phosphatase (38-126) U/L Troponin I <0.012 (0.000-0.034) ng/mL Total Protein (6.3-8.2) g/dL Albumin (3.5-5.0) g/dL TSH (0.465-4.680) mIU/L Disposition Clinical Impression: Tachycardia, Palpitations Disposition: ADMITTED IP TO THIS [facility] Condition: Fair Referrals: Lon Alexandra MD [Primary Care Provider] - 1-2 days Decision Time: 18:23
[2020-10-09 17:22] LABS: Basophils # (A) 0.1 k/uL (0-0.2); Basophils % (A) 1 %; Eosinophils # (A) 0.2 k/uL (0-0.7); Eosinophils % (A) 2 %; HCT 48.1 % (34.0-46.0); HGB 16.3 gm/dL (11.4-16.0); Lymphocytes % (A) 20 %; MCH 28.2 pg (25.0-35.0); Mean Platelet Volume 9.2; Monocytes # (A) 0.5 k/uL (0-1.0); Monocytes % (A) 5 %; Neutrophils # (A) 6.7 k/uL (1.3-7.7); Neutrophils % (A) 69 %; Platelet Count 292 k/uL (150-450); RBC 5.79 m/uL (3.80-5.40); RDW 13.4 % (11.5-15.5); WBC 9.7 k/uL (3.8-10.6)
--- NOTE | 2020-10-09 17:27 | XR ---
EXAMINATION TYPE: XR chest 2V DATE OF EXAM: 10/09/2020 COMPARISON: 10/30/2017 HISTORY: Pain TECHNIQUE: 2 views FINDINGS: Heart and mediastinum are normal. Lungs are clear of infiltrate. There are no hilar masses. There are chest leads. Bony thorax is intact IMPRESSION: No active cardiopulmonary disease. Normal heart. No change.
[2020-10-09 17:37] LABS: Partial Thromboplastin Time 24.1 sec (22.0-30.0); Prothrombin Time 10.4 sec (9.0-12.0)
[2020-10-09 17:46] LABS: ALT 52 U/L (4-34); AST 41 U/L (14-36); African American GFR (CKD) >90 (>60 ml/min/1.73 sqM); Albumin 4.7 g/dL (3.5-5.0); Alkaline Phosphatase 97 U/L (38-126); Anion Gap 14 mmol/L; Blood Urea Nitrogen 14 mg/dL (7-17); Calcium 10.1 mg/dL (8.4-10.2); Carbon Dioxide 23 mmol/L (22-30); Chloride 104 mmol/L (98-107); Glucose 108 mg/dL (74-99); Magnesium 2.2 mg/dL (1.6-2.3); Non-African American GFR(CKD) >90 (>60 ml/min/1.73 sqM); Potassium 4.1 mmol/L (3.5-5.1); Sodium 141 mmol/L (137-145); Total Bilirubin 0.5 mg/dL (0.2-1.3); Total Protein 8.5 g/dL (6.3-8.2)
[2020-10-09] MEDS ORDERED: SODIUM CHLORIDE 0.9% 1,000 ML IV STA (18:04)
[2020-10-09] MEDS ORDERED: ONDANSETRON 4 MG/2 ML VIAL IVP PRN (18:20)
[2020-10-09] MEDS ORDERED: ALPRAZolam 0.25 MG TAB PO PRN (18:20)
[2020-10-09] MEDS ORDERED: NALOXONE 0.4 MG/ML 1 ML VIAL IV PRN (18:20)
[2020-10-09] MEDS ORDERED: METOPROLOL TARTRATE 25 MG TAB PO STA (18:22)
[2020-10-09] MEDS ORDERED: SODIUM CHLORIDE 0.9% 1,000 ML IV SCH (18:30)
--- NOTE | 2020-10-10 09:46 | P.CRDCN ---
History of Present Illness Consult date: 10/10/20 History of present illness: CHIEF COMPLAINT: Palpitations HISTORY OF PRESENT ILLNESS: This is a 60-year-old female with a past medical history significant for hyperlipidemia, anxiety, hypertension, and mitral valve prolapse. Patient followed in the office in [address] Busby. We have been asked to see the patient in consultation for palpitations. Patient examined this morning at the bedside. Patient reports feeling palpitations over the past week. Patient reports having a history of palpitations but states over the last week they seem to be more frequent. She reports a history of severe anxiety and states that she has felt more anxious lately and when she begins having palpitations it also increases her anxiety. She denies any chest pain or shortness of breath. She reports a history of indigestion over the past week as well and states that has also increased her anxiety. Patient was prescribed beta blockers in the past but patient states she cannot take them because it gave her severe chest pain. Patient's blood pressure was noted to be 208/133 in the emergency room. Patient states she checks her blood pressure at home and her systolic blood pressure usually runs between 1001 20. She states it is very normal for her to have increased blood pressure when she is in the hospital or having anything done medically because it increases her anxiety. According to Dr. Busby's note in the office from 2017, patient has been prescribed multiple antihypertensive medications including lisinopril and Norvasc and patient has not been able to tolerate any of them. Patient states she is very hesitant to take medications and is currently taking a supplement that was recommended by her chiropractor for cardiovascular health. Patient also reports a history of hyperlipidemia and states she is not able to tolerate statins due to the side effects of the medications and states they also increased her liver function tests. DIAGNOSTICS: EKG reveals sinus tachycardia with no signs of acute ischemia Chest xray negative for acute process Laboratory data: WBC 9.7. Hemoglobin 16.3. Platelet count 292. Sodium 141. Potassium 4.1. BUN 14. Creatinine 0.58. Magnesium 2.2. AST 41. ALT 52. Troponin negative x1. TSH 2.560. Current home cardiac medications include none REVIEW OF SYSTEMS: At the time of my exam: CONSTITUTIONAL: Denies fever or chills. HEENT: Denies blurred vision, vision changes, or eye pain. Denies hemoptysis CARDIOVASCULAR: Denies chest pain, orthopnea, PND or palpitations RESPIRATORY: No shortness of breath. GASTROINTESTINAL: Denies abdominal pain. Denies nausea or vomiting. HEMATOLOGIC: Denies bleeding disorders. GENITOURINARY: Denies any blood in urine. SKIN: Denies pruitis. Denies rash. PHYSICAL EXAM: VITAL SIGNS: Reviewed. GENERAL: Well-developed in no acute distress. HEENT: Head is normocephalic. Pupils are equal, round. Sclerae anicteric. Mucous membranes of the mouth are moist. Neck supple. No JVD or thyromegaly LUNGS: Respirations even and unlabored. Lungs essentially clear to auscultation bilaterally. HEART: Regular rate and rhythm. S1 and S2 heard. ABDOMEN: Soft. Nondistended. Nontender. EXTREMITIES: Normal range of motion. No clubbing or cyanosis. Peripheral pulses intact. No lower extremity edema NEUROLOGIC: Awake and alert. Oriented x 3. ASSESSMENT: Palpitations Sinus tachycardia, intolerant to beta blockers Anxiety Hyperlipidemia, intolerant to statins Hypertension, controlled without medications at home per patient, unable to tolerate antihypertensive medications History of mitral valve prolapse Mildly abnormal liver function test PLAN: Obtain 2-D echo to assess cardiac structure and function Patient intolerant to beta blockers due to side effects Recommend patient keep a log of her blood pressures and bring with her to follow up appointment Ongoing treatment of anxiety Patient may be discharged home today from a cardiac standpoint. Patient requesting not to follow up with Dr. Busby. She may follow up with Dr. Patterson. Nurse practitioner note has been reviewed by physician. Signing provider agrees with the documented findings, assessment, and plan of care. Past Medical History Past Medical History: GERD/Reflux, Hypertension Additional Past Medical History / Comment(s): IBS History of Any Multi-Drug Resistant Organisms: None Reported Past Surgical History: Cholecystectomy, Tubal Ligation Additional Past Anesthesia/Blood Transfusion Reaction / Comment(s): pt states when she was on anesthesia last, they had a hard time bringing her out of it. Past Psychological History: Anxiety Smoking Status: Never smoker Past Alcohol Use History: None Reported Past Drug Use History: None Reported Medications and Allergies Home Medications Medication Instructions Recorded Confirmed Type ALPRAZolam [Xanax] 0.0625 mg PO BID PRN 07/06/17 10/09/20 History Simethicone [Gas-X] 250 mg PO TID PRN 10/30/17 10/09/20 History Calcium Carbonate [Tums] 1,000 mg PO TID PRN 10/09/20 10/09/20 History Famotidine [Pepcid] 20 mg PO ONCE 10/09/20 10/09/20 History Mag/Aluminum/Sod Bicarb/Alginc 2 tab PO TID PRN 10/09/20 10/09/20 History [Gaviscon 80-14.2 mg Tab Chew] Neo40 1 tab PO HS 10/09/20 10/09/20 History Allergies Allergy/AdvReac Type Severity Reaction Status Date / Time amoxicillin Allergy Unknown Verified 10/09/20 16:57 aspirin Allergy Unknown Verified 10/09/20 16:57 Iodine and Iodide Containing Allergy Unknown Verified 10/09/20 16:57 Produc latex Allergy Unknown Verified 10/09/20 16:57 Penicillins Allergy Unknown Verified 10/09/20 16:57 prednisone Allergy Unknown Verified 10/09/20 16:57 strawberry Allergy Unknown Verified 10/09/20 16:57 amlodipine [From Norvasc] AdvReac CAUSED Verified 10/09/20 16:57 BLOOD PRESSURE TO GO UP Beta-Blockers AdvReac CHEST Verified 10/09/20 16:57 (Beta-Adrenergic Bloc PRESSURE lisinopril AdvReac DIZZINESS Verified 10/09/20 16:57 omeprazole [From Prilosec] AdvReac Itching Verified 10/09/20 16:57 Physical Exam Vitals: Vital Signs Temp Pulse Pulse Resp BP BP Pulse Ox 10/10/20 08:00 93 19 10/10/20 07:48 98.1 F 93 19 179/111 98 10/10/20 00:57 98.0 F 76 17 119/81 99 10/09/20 20:31 98 F 96 94 18 157/106 179/139 98 10/09/20 19:31 157/109 10/09/20 19:20 98.2 F 101 H 18 161/113 97 10/09/20 19:00 97 18 170/103 95 10/09/20 18:30 101 H 18 190/108 97 10/09/20 18:00 108 H 18 177/106 95 10/09/20 17:09 112 H 18 96 10/09/20 16:24 99.1 F 131 H 20 208/133 97 Intake and Output 10/09/20 10/10/20 10/10/20 22:59 06:59 14:59 Other: # Voids 1 Weight 77.111 kg Results 10/09/20 16:46 10/09/20 16:46 Cardiac Enzymes 10/09/20 10/09/20 Range/Units 16:46 16:46 AST 41 H (14-36) U/L Troponin I <0.012 (0.000-0.034) ng/mL Coagulation 10/09/20 Range/Units 16:46 PT 10.4 (9.0-12.0) sec APTT 24.1 (22.0-30.0) sec CBC 10/09/20 Range/Units 16:46 WBC 9.7 (3.8-10.6) k/uL RBC 5.79 H (3.80-5.40) m/uL Hgb 16.3 H (11.4-16.0) gm/dL Hct 48.1 H (34.0-46.0) % Plt Count 292 (150-450) k/uL Comprehensive Metabolic Panel 10/09/20 Range/Units 16:46 Sodium 141 (137-145) mmol/L Potassium 4.1 (3.5-5.1) mmol/L Chloride 104 (98-107) mmol/L Carbon Dioxide 23 (22-30) mmol/L BUN 14 (7-17) mg/dL Creatinine 0.58 (0.52-1.04) mg/dL Glucose 108 H (74-99) mg/dL Calcium 10.1 (8.4-10.2) mg/dL AST 41 H (14-36) U/L ALT 52 H (4-34) U/L Alkaline Phosphatase 97 (38-126) U/L Total Protein 8.5 H (6.3-8.2) g/dL Albumin 4.7 (3.5-5.0) g/dL Current Medications Generic Name Dose Route Start Last Admin Trade Name Freq PRN Reason Stop Dose Admin Alprazolam 0.25 mg 10/09/20 18:20 Alprazolam 0.25 Mg Tab PO Q6HR PRN Anxiety Sodium Chloride 1,000 mls @ 20 mls/hr 10/09/20 18:30 10/09/20 19:28 Saline 0.9% IV 20 mls/hr .Q24H GLORIA Administration Naloxone HCl 0.2 mg 10/09/20 18:20 Naloxone 0.4 Mg/Ml 1 Ml Vial IV Q2M PRN Opioid Reversal Ondansetron HCl 4 mg 10/09/20 18:20 Ondansetron 4 Mg/2 Ml Vial IVP Q8HR PRN Nausea And Vomiting Intake and Output 10/09/20 10/10/20 10/10/20 22:59 06:59 14:59 Other: # Voids 1 Weight 77.111 kg 10/09/20 16:46 10/09/20 16:46
--- NOTE | 2020-10-10 10:42 | ECHOF ---
Referral Reason:palpitations, lv function MEASUREMENTS -------- HEIGHT: 160.0 cm WEIGHT: 77.1 kg BP: RVIDd: 2.8 cm (< 3.3) IVSd: 1.3 cm (0.6 - 1.1) LVIDd: 4.1 cm (3.9 - 5.3) LVPWd: 1.3 cm (0.6 - 1.1) IVSs: 1.9 cm LVIDs: 2.8 cm LVPWs: 1.6 cm LA Diam: 3.9 cm (2.7 - 3.8) LAESV Index (A-L): 15.74 ml/m Ao Diam: 2.9 cm (2.0 - 3.7) AV Cusp: 1.6 cm (1.5 - 2.6) MV EXCURSION: 15.279 mm (> 18.000) MV EF SLOPE: 55 mm/s (70 - 150) EPSS: 0.4 cm MV E Cristi: 1.09 m/s MV DecT: 271 ms MV A Cristi: 1.22 m/s MV E/A Ratio: 0.90 RAP: 5.00 mmHg RVSP: 24.85 mmHg FINDINGS -------- Sinus rhythm. This was a technically adequate study. The left ventricular size is normal. There is mild concentric left ventricular hypertrophy. Overa ll left ventricular systolic function is normal with, an EF between 55 - 60 %. The diastolic fillin g pattern is normal for the age of the patient 10.25. The right ventricle is normal in size. Normal LA size by volume 22+/-6 ml/m2. The right atrial size is normal. Interatrial and interventricular septum intact. Aortic valve is trileaflet and is mildly thickened. There is mild aortic regurgitation. The mitral valve is normal. Mild mitral regurgitation is present. The tricuspid valve appears structurally normal. Mild tricuspid regurgitation present. Right vent ricular systolic pressure is normal at < 35 mmHg. Unable to estimate RVSP due to inadequate TR jet spectral doppler profile. Trace/mild (physiologic) pulmonic regurgitation. The aortic root size is normal. IVC Not well visulized. There is no pericardial effusion. CONCLUSIONS -------- 1. There is mild concentric left ventricular hypertrophy. 2. Overall left ventricular systolic function is normal with, an EF between 55 - 60 %. 3. There is mild aortic regurgitation. 4. Mild mitral regurgitation is present. 5. Mild tricuspid regurgitation present. 6. Trace/mild (physiologic) pulmonic regurgitation. 7. There is no pericardial effusion. DISTRICT OR DISTRICT OFFICE DIRECTOR: BONIFACIO Hammonds
[2020-10-10 13:55] VITALS: BP 201/138; PULSE 91; RESP 17; TEMP 97.4
--- NOTE | 2020-10-11 00:07 | P.HPIM ---
History of Present Illness H&P Date: 10/10/20 Chief Complaint: Fluttering sensation in the chest. History of presenting complaint: This is a pleasant 60-year-old patient of Dr. Lon Dc. Occasionally has had a fluttering sensation in the chest. Last one week she been having more frequent fluttering skip heartbeats. He feels a bit of her gas feeling of indigestion or stomach also. No chest pain. No chest tightness. No dizziness. No perspiration. 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 Does not sleep well. Gets very easily anxious. Also had a difficult time controlling her blood pressure in the past. Has tried about 6 different blood pressure medications. Also just takes Xanax for anxiety. Does not sleep that is rather stressed out. Also looking to change her job. Because of stress Review of systems: GEN.: Tired EYES: None HEENT: None NECK: None RESPIRATORY: None CARDIOVASCULAR: As above] GASTROINTESTINAL: None GENITOURINARY: None MUSCULOSKELETAL: Joint pains LYMPHATICS: None HEMATOLOGICAL: None PSYCHIATRY: Anxious NEUROLOGICAL: Trouble sleeping Past medical history to include: GERD, hypertension, essential bowel syndrome, anxiety, insomnia Social history: Patient currently is teaching 6 and 7 grade. . No history of smoking or alcohol Physical examination: VITAL SIGNS: 99.1, 112, 20, 177 x 1 06, 97% room air GENERAL: BMI 30.1, sitting up in bed, slightly anxious. EYES: Pupils equal. Conjunctiva normal. HEENT: External appearance of nose and ears normal, oral cavity grossly normal, some dock circles under the eyes. NECK: JVD not raised; masses not palpable. HEART: First and second heart sounds are normal; no edema. LUNGS: Respiratory rate normal; clear to auscultation. ABDOMEN: Soft, nontender, liver spleen not palpable, no masses palpable. PSYCH: [Alert and oriented x3; mood and affect anxious. NEUROLOGICAL: Cranial nerves grossly intact; no facial asymmetry, power and sensation grossly intact. LYMPHATICS: No lymph nodes palpable in the axilla and neck INVESTIGATIONS, reviewed in the clinical context: White count 9.7 hemoglobin 16.3 platelets 292 potassium 4.1 creatinine 0.58 TSH 2.5 EKG tracing personally reviewed by me shows-sinus tachycardia rate of 120 Chest x-ray film personally reviewed by me-no acute Assessment: -This is a patient's had intermittent fluttering skipping sensation in the chest for some time. No foreign weeks been having more pronounced symptoms. Patient is very stressed anxious. Unable to take at least 6 different blood pressure medications the past. Is taking health supplement for her blood pressure. She also states that her blood pressure and it goes up in doctor's offices more like a whitecoat hypertension. At this point is she is very reluctant to start any blood pressure medication until she sees her family doctor. -Uncontrolled anxiety -Insomnia multifactorial including from anxiety -GERD -Dyspepsia -Irritable bowel syndrome -Obesity BMI 30.1 Plan: Care was discussed with the patient. 2-D echocardiogram was ordered. Cardiology was consulted. Home medications resumed. Past Medical History Past Medical History: GERD/Reflux, Hypertension Additional Past Medical History / Comment(s): IBS History of Any Multi-Drug Resistant Organisms: None Reported Past Surgical History: Cholecystectomy, Tubal Ligation Additional Past Anesthesia/Blood Transfusion Reaction / Comment(s): pt states when she was on anesthesia last, they had a hard time bringing her out of it. Past Psychological History: Anxiety Smoking Status: Never smoker Past Alcohol Use History: None Reported Past Drug Use History: None Reported Medications and Allergies Home Medications Medication Instructions Recorded Confirmed Type ALPRAZolam [Xanax] 0.0625 mg PO BID PRN 07/06/17 10/09/20 History Simethicone [Gas-X] 250 mg PO TID PRN 10/30/17 10/09/20 History Calcium Carbonate [Tums] 1,000 mg PO TID PRN 10/09/20 10/09/20 History Mag/Aluminum/Sod Bicarb/Alginc 2 tab PO TID PRN 10/09/20 10/09/20 History [Gaviscon 80-14.2 mg Tab Chew] Neo40 1 tab PO HS 10/09/20 10/09/20 History Melatonin 1 mg PO HS #30 tablet 10/10/20 Rx Allergies Allergy/AdvReac Type Severity Reaction Status Date / Time amoxicillin Allergy Unknown Verified 10/09/20 16:57 aspirin Allergy Unknown Verified 10/09/20 16:57 Iodine and Iodide Containing Allergy Unknown Verified 10/09/20 16:57 Produc latex Allergy Unknown Verified 10/09/20 16:57 Penicillins Allergy Unknown Verified 10/09/20 16:57 prednisone Allergy Unknown Verified 10/09/20 16:57 strawberry Allergy Unknown Verified 10/09/20 16:57 amlodipine [From Norvasc] AdvReac CAUSED Verified 10/09/20 16:57 BLOOD PRESSURE TO GO UP Beta-Blockers AdvReac CHEST Verified 10/09/20 16:57 (Beta-Adrenergic Bloc PRESSURE lisinopril AdvReac DIZZINESS Verified 10/09/20 16:57 omeprazole [From Prilosec] AdvReac Itching Verified 10/09/20 16:57 Physical Exam Vitals: Vital Signs Temp Pulse Pulse Resp BP BP Pulse Ox 10/10/20 08:00 93 19 10/10/20 07:48 98.1 F 93 19 179/111 98 10/10/20 00:57 98.0 F 76 17 119/81 99 10/09/20 20:31 98 F 96 94 18 157/106 179/139 98 10/09/20 19:31 157/109 10/09/20 19:20 98.2 F 101 H 18 161/113 97 10/09/20 19:00 97 18 170/103 95 10/09/20 18:30 101 H 18 190/108 97 10/09/20 18:00 108 H 18 177/106 95 10/09/20 17:09 112 H 18 96 10/09/20 16:24 99.1 F 131 H 20 208/133 97 Intake and Output 10/09/20 10/10/20 10/10/20 22:59 06:59 14:59 Other: # Voids 1 Weight 77.111 kg Results CBC & Chem 7: 10/09/20 16:46 10/09/20 16:46 Labs: Abnormal Lab Results - Last 24 Hours (Table) 10/09/20 10/09/20 Range/Units 16:46 16:46 RBC 5.79 H (3.80-5.40) m/uL Hgb 16.3 H (11.4-16.0) gm/dL Hct 48.1 H (34.0-46.0) % Glucose 108 H (74-99) mg/dL AST 41 H (14-36) U/L ALT 52 H (4-34) U/L Total Protein 8.5 H (6.3-8.2) g/dL Thrombosis Risk Factor Assmnt - Choose All That Apply Any of the Below Risk Factors Present?: Yes Each Factor Represents 1 point: Age 41-60 years, Obesity (BMI >25) Other Risk Factors: No Other congenital or acquired thrombophilia - If yes, enter type in comment: No Thrombosis Risk Factor Assessment Total Risk Factor Score: 2 Thrombosis Risk Factor Assessment Level: Low Risk
--- NOTE | 2020-10-11 00:12 | P.DS ---
Providers Date of admission: 10/09/20 18:20 Expected date of discharge: 10/11/20 Attending physician: Madhav Veras Consults: 10/09/20 18:20 Consult Physician Routine Consulting Provider: Luzma Manzano Consult Reason/Comments: palpitations Do you want consulting provider notified?: Yes [facility] Course: Chief Complaint: Fluttering sensation in the chest. History of presenting complaint: This is a pleasant 60-year-old patient of Dr. Lon Alexandra. Occasionally has had a fluttering sensation in the chest. Last one week she been having more frequent fluttering skip heartbeats. He feels a bit of her gas feeling of indigestion or stomach also. No chest pain. No chest tightness. No dizziness. No perspiration. 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 Does not sleep well. Gets very easily anxious. Also had a difficult time controlling her blood pressure in the past. Has tried about 6 different blood pressure medications. Also just takes Xanax for anxiety. Does not sleep that is rather stressed out. Also looking to change her job. Because of stress Discussed with the patient about starting antihypertensive. She this point does not want to do the same. Wishes to discussed with the family doctor. Have also prescribed melatonin for sleep. Also advised the patient about mindfulness including the using the crys Smiling mind. Patient diet was also discussed. Cleared by cardiology. She'll follow with Dr. Patterson. Patient also very reluctant to start any other anxiety medication. Consultation: Dr. 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 . No history of smoking or alcohol Physical examination: VITAL SIGNS: 97.4, 91, 17, 201/138, 96 % room air GENERAL: BMI 30.1, sitting up in bed, slightly anxious. EYES: Pupils equal. Conjunctiva normal. HEENT: External appearance of nose and ears normal, oral cavity grossly normal, some dock circles under the eyes. NECK: JVD not raised; masses not palpable. HEART: First and second heart sounds are normal; no edema. LUNGS: Respiratory rate normal; clear to auscultation. ABDOMEN: Soft, nontender, liver spleen not palpable, no masses palpable. PSYCH: [Alert and oriented x3; mood and affect anxious. NEUROLOGICAL: Cranial nerves grossly intact; no facial asymmetry, power and sensation grossly intact. INVESTIGATIONS, reviewed in the clinical context: White count 9.7 hemoglobin 16.3 platelets 292 potassium 4.1 creatinine 0.58 TSH 2.5 EKG tracing personally reviewed by me shows-sinus tachycardia rate of 120 Chest x-ray film personally reviewed by me-no acute 2-D echocardiogram-EF 55-60% Assessment: -This is a patient's had intermittent fluttering skipping sensation in the chest for some time. In the last 2 weeks having more pronounced symptoms. Patient is very stressed anxious. Unable to take at least 6 different blood pressure medications the past. Is taking health supplement for her blood pressure. She also states that her blood pressure and it goes up in doctor's offices At this point is she is very reluctant to start any blood pressure medication until she sees her family doctor. -Uncontrolled anxiety -Insomnia multifactorial including from anxiety -GERD -Dyspepsia -Irritable bowel syndrome -Obesity BMI 30.1 -Whitecoat hypertension -Sinus tachycardia from anxiety -Essential hypertension uncontrolled Disposition: Home Patient Condition at Discharge: Stable Plan - Discharge Summary Discharge Rx Participant: No New Discharge Prescriptions: New Melatonin 1 mg PO HS #30 tablet Continue ALPRAZolam [Xanax] 0.0625 mg PO BID PRN PRN Reason: Anxiety Simethicone [Gas-X] 250 mg PO TID PRN PRN Reason: Gi Upset Mag/Aluminum/Sod Bicarb/Alginc [Gaviscon 80-14.2 mg Tab Chew] 2 tab PO TID PRN PRN Reason: Gi Upset Calcium Carbonate [Tums] 1,000 mg PO TID PRN PRN Reason: Gi Upset Discontinued Famotidine [Pepcid] 20 mg PO ONCE No Action Neo40 1 tab PO HS Discharge Medication List ALPRAZolam [Xanax] 0.0625 mg PO BID PRN 07/06/17 [History] Simethicone [Gas-X] 250 mg PO TID PRN 10/30/17 [History] Calcium Carbonate [Tums] 1,000 mg PO TID PRN 10/09/20 [History] Mag/Aluminum/Sod Bicarb/Alginc [Gaviscon 80-14.2 mg Tab Chew] 2 tab PO TID PRN 10/09/20 [History] Neo40 1 tab PO HS 10/09/20 [History] Melatonin 1 mg PO HS #30 tablet 10/10/20 [Rx] Follow up Appointment(s)/Referral(s): Sandra Patterson MD [STAFF PHYSICIAN] - 1 Week ([facility] will call patient to schedule appiontment.) Lon Alexandra MD [Primary Care Provider] - 1-2 days Activity/Diet/Wound Care/Special Instructions: smiling mind crys
== END 2020-10-10 14:40 ==
LOC: EC 16:18 → 6NMEDSUR 18:20
PROVIDERS: ADMIT Hospitalist; ATTEND Hospitalist
DX: R00.2 Palpitations (principal); R00.0 Tachycardia, unspecified; F41.9 Anxiety disorder, unspecified; I10 Essential (primary) hypertension; E78.5 Hyperlipidemia, unspecified; K21.9 Gastro-esophageal reflux disease without esophagitis; I34.1 Nonrheumatic mitral (valve) prolapse; R94.5 Abnormal results of liver function studies; K58.9 Irritable bowel syndrome, unspecified; G47.00 Insomnia, unspecified; M25.50 Pain in unspecified joint; K30 Functional dyspepsia; Z79.899 Other long term (current) drug therapy; Z88.6 Allergy status to analgesic agent; Z91.040 Latex allergy status; Z88.0 Allergy status to penicillin; Z88.8 Allergy status to other drugs, medicaments and biological substances; Z91.018 Allergy to other foods; Z91.048 Other nonmedicinal substance allergy status; Z90.49 Acquired absence of other specified parts of digestive tract; T44.7X6A Underdosing of beta-adrenoreceptor antagonists, initial encounter; Z91.128 Patient's intentional underdosing of medication regimen for other reason; Z91.14 Patient's other noncompliance with medication regimen; E66.9 Obesity, unspecified; Z68.30 Body mass index [BMI] 30.0-30.9, adult
CPT/HCPCS: 96361; 96374; 99285; 36415; 93005; 93306; 80053; 83735; 84443; 84484; 85025; 85610; 85730; 71046; G0378 ×2; J2060

== ENCOUNTER → 2022-09-02 | Outpatient (CLI) | payer BC ==
--- NOTE | 2022-09-02 12:15 | MM ---
Reason for Exam: Screening (asymptomatic). Last mammogram was performed 3 year(s) and 4 month(s) ago. Patient History: Menarche at age 15. First Full-Term at age 22. Postmenopausal. Patient has history of breast feeding. 07/24/2016, Benign Core Biopsy on the left side. Risk Values: Jazmine 5 year model risk: 1.5%. NCI Lifetime model risk: 7.7%. Prior Study Comparison: 12/22/2014 Bilateral Screening Mammogram, [facility]. 06/26/2016 Bilateral Screening Mammogram, [facility]. 07/04/2016 Left Diagnostic Mammogram, [facility]. 07/24/2016 Left Diagnostic Mammogram, [facility]. 11/02/2017 Bilateral Diagnostic Mammogram, [facility]. 05/02/2019 Bilateral Screening Mammogram, [facility]. Tissue Density: The breast tissue is heterogeneously dense. This may lower the sensitivity of mammography. Findings: Analyzed By CAD. There is no suspicious group of microcalcifications or new suspicious mass in either breast. Benign-appearing round calcifications within both breasts. Previous mammotome biopsy left breast. No significant change from prior exams. Overall Assessment: Benign, BI-RAD 2 Management: Screening Mammogram of both breasts in 1 year. A clinical breast exam by your physician is recommended on an annual basis and results should be correlated with mammographic findings. Electronically signed and approved by: Iam Jerry D.O.
== END | disposition home or self-care (01) ==
LOC: RADMAMWWP 08:37
PROVIDERS: ATTEND Obstetrics & Gynecology
DX: Z12.31 Encounter for screening mammogram for malignant neoplasm of breast (principal); Z78.0 Asymptomatic menopausal state
CPT/HCPCS: 77063; 77067

== ENCOUNTER → 2024-12-16 | Outpatient (CLI) | payer BC ==
--- NOTE | 2024-12-19 07:45 | MM ---
Reason for Exam: Screening (asymptomatic). Last mammogram was performed 2 year(s) and 4 month(s) ago. Patient History: Menarche at age 15. First Full-Term at age 22. Postmenopausal. Patient has history of breast feeding. 07/24/2016, Benign Core Biopsy on the left side. Risk Values: Jazmine 5 year model risk: 1.6%. NCI Lifetime model risk: 7.3%. Prior Study Comparison: 11/02/2017 Bilateral Diagnostic Mammogram, [facility]. 05/02/2019 Bilateral Screening Mammogram, [facility]. 09/02/2022 Bilateral MG 3D screening mammo w/cad, [facility]. Tissue Density: There are scattered areas of fibroglandular density. Findings: Analyzed By CAD. Microclip left breast from prior biopsy. Unchanged benign bilateral boil cyst calcifications. There is no suspicious group of microcalcifications or new suspicious mass in either breast. Overall Assessment: Benign, BI-RAD 2 Management: Screening Mammogram of both breasts in 1 year. Patient should continue monthly self-breast exams. A clinical breast exam by your physician is recommended on an annual basis. This exam should not preclude additional follow-up of suspicious palpable abnormalities. Note on Jazmine scores and lifetime risk: 1. A Jazmine score greater than 3% is considered moderate risk. If this is the case, consider specialist referral to assess eligibility for a risk reducing agent. 2. If overall lifetime risk for the development of breast cancer is 20% or higher, the patient may qualify for future screening with alternating mammogram and breast MRI. [facility], , 12/19/2024 7:42 AM. Electronically signed and approved by: Andre Pablo M.D. Radiologist
== END | disposition home or self-care (01) ==
LOC: RADMAMWWP 16:13
PROVIDERS: ATTEND Family Medicine
DX: Z12.31 Encounter for screening mammogram for malignant neoplasm of breast (principal); R92.323 Mammographic fibroglandular density, bilateral breasts; Z78.0 Asymptomatic menopausal state
CPT/HCPCS: 77063; 77067